=== PATIENT | male | born 1985 | race African-American/Black ===

== ENCOUNTER 2018-01-25 15:28 | Emergency (ER) | payer MEDICAID ==
[2018-01-25] MEDS ORDERED: Bacitracin Zinc 1 Packet ONE (16:11)
== END 2018-01-25 16:21 | disposition home or self-care (01) ==
LOC: SCSER 15:28
DX: S51.811A Laceration without foreign body of right forearm, initial encounter (principal); W26.8XXA Contact with other sharp object(s), not elsewhere classified, initial encounter
CPT/HCPCS: 12001